=== PATIENT | female | born 1950 | race Caucasian/White ===

== ENCOUNTER 2023-09-05 10:22 | Day surgery (SDC) | payer MEDICARE, BC ==
[2023-09-04 12:31] LABS: ALBUMIN 3.5 G/DL (3.4-5.0); ANION GAP 8 (8-16); BASOPHILS # (AUTO) 0.1 X10'3 (0-0.2); BLOOD UREA NITROGEN 16 MG/DL (7-18); BUN/CREATININE RATIO 18.6 (10.0-20.0); CHLORIDE 106 MMOL/L (99-107); CREATININE 0.86 MG/DL (0.40-0.90); EOSINOPHILS # (AUTO) 0.2 X10'3 (0-0.9); EOSINOPHILS % (AUTO) 2.6 % (0-6); GLUCOSE 90 MG/DL (70-104); HEMOGLOBIN 13.9 g/dl (12.0-16.0); MEAN CORPUSCULAR HEMOGLOBIN 30.6 PG (27.0-31.0); MONOCYTES # (AUTO) 0.5 X10'3 (0-0.9); POTASSIUM 4.4 MMOL/L (3.5-5.1); RED BLOOD COUNT 4.54 X10'6 (4.20-5.60); SODIUM 142 MMOL/L (135-145); TOTAL CARBON DIOXIDE 28.4 MMOL/L (24-32); WHITE BLOOD COUNT 6.2 X10'3 (4.5-11.0); eGFR 65 ML/MIN
[2023-09-04 12:34] LABS: BASOPHILS % (AUTO) 0.9 % (0-1); LYMPHOCYTES % (AUTO) 15.8 % (21-51); MEAN CORPUSCULAR HGB CONC 32.3 g/dL (33.0-36.5); MEAN CORPUSCULAR VOLUME 94.7 FL (78-98); MONOCYTES % (AUTO) 8.8 % (2-12); NEUTROPHILS # (AUTO) 4.5 X10'3 (1.8-7.7); NEUTROPHILS % (AUTO) 71.9 % (42-75); PLATELET COUNT 76 X10'3 (140-440); RED CELL DISTRIBUTION WIDTH 15.3 % (11.5-14.5)
[2023-09-04 12:44] LABS: APTT 26 SECONDS (22-32); INR 1.1 INR; PROTHROMBIN TIME 11.7 SECONDS (9.0-12.0)
[~2023-09-05] VITALS: Ht 167.6 cm; Wt 93.3 kg
[2023-09-05] VITALS (10 sets, daily range): BP systolic 105–146; BP diastolic 56–86; PULSE 76–88; RESP 14–15; O2SAT 93–96
[2023-09-05] MEDS ORDERED: LORazepam 0.5 MG tablet PO PRN (10:40)
[2023-09-05] MEDS ORDERED: CHOL100046 PO (10:51)
[2023-09-05] MEDS ORDERED: ATOR10TA70 PO (10:51)
[2023-09-05] MEDS ORDERED: FERR-39 PO (10:51)
[2023-09-05] MEDS ORDERED: VITA-288 PO (10:51)
[2023-09-05] MEDS ORDERED: LOSA100T58 PO (10:51)
[2023-09-05] MEDS ORDERED: UMEC1DIS INH (10:51)
[2023-09-05] MEDS ORDERED: ASPI81TA52 PO (10:51)
[2023-09-05] MEDS ORDERED: ALBU6.7H14 INH (10:51)
[2023-09-05] MEDS ORDERED: verapamil 2.5 mg/ml inj IV ONE (11:35)
[2023-09-05] MEDS ORDERED: LIDOcaine 1% (10mg/ml) 2ml vial ONE (11:35)
[2023-09-05] MEDS ORDERED: heparin 1,000unit/ml 10ml vial 10 ML ONE (11:36)
[2023-09-05] MEDS ORDERED: midazolam 1 mg/ML 2ml injection ONE (11:36)
[2023-09-05] MEDS ORDERED: nitroGLYCERIN 500mcg/5mL D5W 5 ML IV ONE (11:36)
[2023-09-05] MEDS ORDERED: fentaNYL/PF 50MCG/1 ML 2ML syringe ONE (11:36)
[2023-09-05] MEDS ORDERED: iohexol 350 MG/ML 50ML vial IV ONE (11:36)
[2023-09-05] MEDS ORDERED: iohexol 350MG/ML 100ml bottle IV ONE (11:36)
[2023-09-05] MEDS: diphenhydrAMINE 25mg capsule PO PRN (11:45)
[2023-09-05] MEDS: normal saline 1,000 ML IV SCH (11:46)
[2023-09-05 12:40] LABS: ISTAT HGB ART 13.6 g/dl (12.0-16.0); ISTAT Hct ART 40 %PCV (35-45); ISTAT O2 SATURATION ARTERIAL 89 % (95-98); ISTAT SOURCE ART
[2023-09-05] MEDS ORDERED: normal saline 1000ml 1,000 ML IV SCH (13:40)
[2023-09-05] MEDS: furosemide 20 MG/2 ML vial IV ONE (15:30)
[2023-09-08 07:14] LABS: ISTAT HGB MIX 13.6 g/dl (12.0-16.0); ISTAT Hct MIX 40 %PCV (35-45); ISTAT O2 SATURATION MIX VENOUS 63 % (60-80); ISTAT SOURCE BLNK
== END 2023-09-05 17:00 | disposition home or self-care (01) ==
LOC: SSTAY O 10:22
PROVIDERS: ATTEND Internal Medicine Cardiovascular Disease
DX: I35.0 Nonrheumatic aortic (valve) stenosis (principal); I25.10 Atherosclerotic heart disease of native coronary artery without angina pectoris; Z79.01 Long term (current) use of anticoagulants; Z79.899 Other long term (current) drug therapy
CPT/HCPCS: 76937; 80048; 82803; 85014; 85025; 85610; 85730; 93005; 93460; 93567; 99152; 99153; J1644; J1940; J2250; J3010; J3490; J7030; Q0163; Q9967; A6258; A6402; A6449; C1725; C1751; C1894

== ENCOUNTER 2024-11-12 10:45 | Day surgery (SDC) | payer MEDICARE, BC ==
[2024-11-11 12:34] LABS: LYMPHOCYTES # (AUTO) 0.9 X10'3 (1.1-4.8); MONOCYTES # (AUTO) 0.5 X10'3 (0-0.9); NEUTROPHILS # (AUTO) 4.4 X10'3 (1.8-7.7)
[2024-11-11 12:36] LABS: BASOPHILS # (AUTO) 0.1 X10'3 (0-0.2); EOSINOPHILS # (AUTO) 0.1 X10'3 (0-0.9); EOSINOPHILS % (AUTO) 2.3 % (0-6); LYMPHOCYTES % (AUTO) 15.1 % (21-51); MEAN CORPUSCULAR HEMOGLOBIN 25.2 PG (27.0-31.0); MEAN CORPUSCULAR HGB CONC 31.1 g/dL (33.0-36.5); MEAN CORPUSCULAR VOLUME 80.9 FL (78-98); MEAN PLATELET VOLUME 10.2 FL (7.4-10.4); MONOCYTES % (AUTO) 8.4 % (2-12); NEUTROPHILS % (AUTO) 73.2 % (42-75); PLATELET COUNT 76 X10'3 (140-440); RED BLOOD COUNT 3.96 X10'6 (4.20-5.60); RED CELL DISTRIBUTION WIDTH 16.2 % (11.5-14.5)
[2024-11-11 12:45] LABS: ALBUMIN 3.6 G/DL (3.4-5.0); BLOOD UREA NITROGEN 15 MG/DL (7-18); BUN/CREATININE RATIO 13.6 (10.0-20.0); CALCIUM 8.8 MG/DL (8.5-10.1); GLUCOSE 85 MG/DL (70-104); TOTAL CARBON DIOXIDE 30.1 MMOL/L (24-32); eGFR 48 ML/MIN
[2024-11-11 12:48] LABS: APTT 21 SECONDS (22-32); INR 1.1 INR; PROTHROMBIN TIME 11.3 SECONDS (9.0-12.0)
[2024-11-11 13:06] LABS: ANION GAP 7 (8-16); CHLORIDE 103 MMOL/L (99-107); POTASSIUM 4.3 MMOL/L (3.5-5.1); SODIUM 140 MMOL/L (135-145)
[~2024-11-12] VITALS: Ht 167.6 cm; Wt 85.4 kg
[2024-11-12] VITALS (13 sets, daily range): BP systolic 107–135; BP diastolic 47–68; PULSE 70–88; RESP 12–18; TEMP 97.5; O2SAT 92–97
[~2024-11-12 10:45] MED LIST: ALBU6.7H14 INH; ASPI81TA52 PO; ATOR10TA70 PO; CHOL100046 PO; FERR-39 PO; LOSA100T58 PO; UMEC1DIS INH; VITA-288 PO
[2024-11-12] MEDS ORDERED: LIDOcaine 1% (10mg/ml) 2ml vial ONE (11:25)
[2024-11-12] MEDS ORDERED: iohexol 350 MG/ML 50ML vial IV ONE (11:26)
[2024-11-12] MEDS ORDERED: fentaNYL/PF 50MCG/1 ML 2ML syringe ONE (11:26)
[2024-11-12] MEDS ORDERED: iohexol 350MG/ML 100ml bottle IV ONE (11:26)
[2024-11-12] MEDS ORDERED: nitroGLYCERIN 500mcg/5mL D5W 5 ML IV ONE (11:26)
[2024-11-12] MEDS ORDERED: midazolam 1 mg/ML 2ml injection ONE (11:26)
[2024-11-12] MEDS ORDERED: verapamil 2.5 mg/ml inj IV ONE (11:26)
[2024-11-12] MEDS ORDERED: heparin 1,000unit/ml 10ml vial 10 ML ONE (11:26)
[2024-11-12] MEDS ORDERED: diphenhydrAMINE 25mg capsule PO PRN (11:45)
[2024-11-12] MEDS ORDERED: normal saline 1,000 ML IV SCH (11:45)
[2024-11-12] MEDS ORDERED: LORazepam 0.5 MG tablet PO PRN (11:45)
[2024-11-12] MEDS ORDERED: LIDOcaine 1% 30ml preserv. free vial ONE (12:30)
[2024-11-12] MEDS: morphine 2 MG/ML inj. syringe IV PRN (14:32)
[2024-11-12] MEDS: normal saline 1000ml 1,000 ML IV SCH (14:32)
[2024-11-12 14:52] LABS: ISTAT HGB MIX 9.9 g/dl (12.0-16.0); ISTAT Hct MIX 29 %PCV (35-45); ISTAT O2 SATURATION MIX VENOUS 59 % (60-80); ISTAT SOURCE BLNK
[2024-11-12 14:53] LABS: ISTAT HGB ART 9.5 g/dl (12.0-16.0); ISTAT Hct ART 28 %PCV (35-45); ISTAT O2 SATURATION ARTERIAL 94 % (95-98); ISTAT SOURCE BLNK
--- NOTE | 2024-11-15 04:55 | CARDIOLOGY REPORT ---
DATE OF SERVICE: 11/12/2024 DICTATING PHYSICIAN: ALLYN Cleveland MD CARDIAC CATHETERIZATION GENDER: Female. AGE: 74 years. HEIGHT: 168 cm. WEIGHT: 83.9 kg. BODY SURFACE AREA: 1.94 m2. PRIMARY PHYSICIAN: Verónica Ferrari MD OPERATIONS MGR: ALLYN Cleveland MD INDICATION: The patient is a 74-year-old postmenopausal female with a history of hypertension, hyperlipidemia, nonobstructive CAD, severe aortic stenosis, and COPD. The patient had an echocardiogram on 11/04/2024, which showed ejection fraction 50-65% with an aortic valve area of 0.8 cm2. Aortic velocity was 3.75 m/s with a peak/mean gradient of 32 mmHg. The patient has been having exertional fatigue and shortness of breath and she also has underlying COPD. She smoked until age 65. After discussing risks, benefits and alternative options, the patient prefers to proceed with evaluation of TAVR, evaluation of aortic valve stenosis severity assessment. Risks, benefits and alternative options were discussed. Informed consent obtained. PROCEDURES: * The patient had ultrasound-guided right femoral artery visualization and access. * Right heart catheterization. * Left heart catheterization. * LVG. * Coronary cineangiography. * Conscious sedation of 30 minutes and right femoral arteriogram. PROCEDURE TECHNIQUE: Right radial artery access was not successful and Hence it was switched to right femoral arterial access. The patient underwent a right antecubital approach, 6-Cook Islander sheath. Post-procedure access site hemostasis secured with manual compression. The patient underwent left heart, right femoral approach, 6-[place] Islander right femoral artery sheath. Post-procedure access site hemostasis secured with manual compression by FemoStop. The patient tolerated the procedure well. COMPLICATIONS: None. FINDINGS: HEMODYNAMICS: Aortic systolic 115 mmHg, diastolic 64 mmHg, mean 86 mmHg. LV systolic 158 mmHg, LVEDP of 25 mmHg. There was a mean gradient of 32 mmHg across the aortic valve with aortic valve area of 1.1 cm2. Right atrial mean 1 mmHg, RV 30/7 mmHg. Pulmonary capillary wedge pressure of 10 mmHg. PA pressure of 26/13 mmHg. Aortic oxygen saturation 94%. Pulmonary artery oxygen saturation 59%. Cardiac output with thermodilution was 7.3 L/min. Cardiac index 3.7 L/min/m2. LEFT VENTRICULOGRAM: Overall, left ventricular systolic function normal. LV ejection fraction of 70-75%. CORONARY CINEANGIOGRAPHY: Left main coronary artery is a large caliber vessel arising from the left aortic sinus engaged with a JL4 catheter, right femoral approach, has mild luminal irregularities. LAD is a medium caliber vessel arising at the bifurcation of the left main coronary artery tortuous, ends by wrapping around the apex. LAD has about 20% narrowing in the proximal and midsection. Diagonal 1 is 2.5 mm with mild luminal irregularities. Ramus is a 2.25 mm caliber with mild luminal irregularities. Circumflex artery is medium caliber vessel arising at the bifurcation of left main coronary artery and coursing through the left AV groove. Circumflex artery shows proximal 40% narrowing. OM1 is 2 mm caliber with mild luminal irregularities. OM2 is 2.75 mm caliber vessel with mild irregularities. The right coronary artery is a medium caliber dominant vessel arising at the right aortic sinus and coursing through the right AV groove and ends at the posterior crux by dividing into PDA and a posterolateral RCA and its branches have mild luminal irregularities. IMPRESSION: A 74-year-old female with LV ejection fraction 70-75%. LVEDP of 25 mmHg. There is a mean gradient of 32.4 mmHg across the aortic valve with aortic valve area of 1.14 cm2. Pulmonary capillary wedge pressure of 10 mmHg. PA pressure of 26/13 mmHg. Left main normal, proximal and mid LAD 20% narrowing. Proximal circumflex 30% narrowing. RCA with mild luminal irregularities. moderate aortic stenosis. Patient will have another echocardiogram in three months for re-evaluation. Risks benefits alternative options discussed in detail with the patient. ALLYN Cleveland MD TID: [id number] RECEIPT: [id number] JAYMIE/MELA/JOSE cc: Verónica Ferrari MD [facility]
== END 2024-11-12 19:50 | disposition home or self-care (01) ==
LOC: SSTAY O 10:45
PROVIDERS: ATTEND Internal Medicine Cardiovascular Disease
DX: I25.10 Atherosclerotic heart disease of native coronary artery without angina pectoris (principal); I35.0 Nonrheumatic aortic (valve) stenosis; I10 Essential (primary) hypertension; E78.5 Hyperlipidemia, unspecified; J44.9 Chronic obstructive pulmonary disease, unspecified; Z79.899 Other long term (current) drug therapy
CPT/HCPCS: 80048; 82803; 85014; 85025; 85610; 85730; 93460; 99152; 99153; A4615; A6258; A6402; C1725; C1751; C1894; J1644; J2003; J2250; J2270; J3010; J3490; J7030; Q9967; Z7610; 76937; A6449

== ENCOUNTER 2024-12-02 09:30 | Outpatient (CLI) | payer MEDICARE, BC ==
[~2024-12-02] VITALS: Ht 162.6 cm; Wt 85.9 kg
[~2024-12-02 09:30] MED LIST changes: -FERR-39 PO
[2024-12-02 10:05] LABS: BASOPHILS # (AUTO) 0.1 X10'3 (0-0.2); BASOPHILS % (AUTO) 1.3 % (0-1); EOSINOPHILS # (AUTO) 0.1 X10'3 (0-0.9); HEMOGLOBIN 9.2 g/dl (12.0-16.0); LYMPHOCYTES # (AUTO) 0.6 X10'3 (1.1-4.8); LYMPHOCYTES % (AUTO) 14.2 % (21-51); MEAN CORPUSCULAR HEMOGLOBIN 23.7 PG (27.0-31.0); MEAN CORPUSCULAR HGB CONC 30.5 g/dL (33.0-36.5); MEAN CORPUSCULAR VOLUME 77.8 FL (78-98); MEAN PLATELET VOLUME 10.5 FL (7.4-10.4); MONOCYTES # (AUTO) 0.5 X10'3 (0-0.9); MONOCYTES % (AUTO) 10.3 % (2-12); NEUTROPHILS # (AUTO) 3.2 X10'3 (1.8-7.7); NEUTROPHILS % (AUTO) 71.2 % (42-75); PLATELET COUNT 69 X10'3 (140-440); RED BLOOD COUNT 3.86 X10'6 (4.20-5.60); RED CELL DISTRIBUTION WIDTH 16.8 % (11.5-14.5); WHITE BLOOD COUNT 4.5 X10'3 (4.5-11.0)
[2024-12-02 10:15] LABS: APTT 23 SECONDS (22-32); INR 1.1 INR; PROTHROMBIN TIME 11.3 SECONDS (9.0-12.0)
[2024-12-02 10:30] LABS: ALANINE AMINOTRANSFERASE 74 U/L (12-78); ALBUMIN 3.4 G/DL (3.4-5.0); ALKALINE PHOSPHATASE 116 IU/L (46-116); ANION GAP 7 (8-16); ASPARTATE AMINO TRANSFERASE 79 U/L (10-37); BILIRUBIN,TOTAL 1.7 MG/DL (0.1-1.0); BLOOD UREA NITROGEN 13 MG/DL (7-18); CALCIUM 8.5 MG/DL (8.5-10.1); CHLORIDE 108 MMOL/L (99-107); CREATININE 0.93 MG/DL (0.40-0.90); GLUCOSE 91 MG/DL (70-104); POTASSIUM 4.3 MMOL/L (3.5-5.1); PRO BRAIN NATRIURETIC PEPTIDE 187 PG/ML (0-450); SODIUM 145 MMOL/L (135-145); TOTAL CARBON DIOXIDE 30.4 MMOL/L (24-32); TOTAL PROTEIN 6.7 G/DL (6.4-8.2); eGFR 59 ML/MIN
--- NOTE | 2024-12-02 10:33 | RADIOLOGY REPORT ---
EXAM: DI CHEST,TWO VIEWS CLINICAL HISTORY: Pain COMPARISON: None TECHNIQUE: Frontal and lateral view of the chest was obtained FINDINGS: Lines and Tubes: None Lungs: No focal consolidation. Pleura: No effusion. No pneumothorax. Cardiomediastinal contours: Unremarkable. Atherosclerotic vascular calcifications of the thoracic ao rta are noted. Bones: No acute osseous abnormality. IMPRESSION: No acute cardiopulmonary disease.
--- NOTE | 2024-12-02 12:44 | VASCULAR REPORT ---
Indication: Preoperative Technique: Real-time ultrasound images of the neck vessels with coy-scale, color and wave Doppler we re obtained. Comparison: None Findings: Balm-uo-dgkqdrif bilateral atherosclerotic plaque. The following peak systolic velocities were recorded in cm/sec: Right internal carotid: 97 Right common carotid: 61 Right external carotid: 91 Right internal/common carotid ratio: 1.6 Left internal carotid: 135 Left common carotid: 78 Left external carotid: 67 Left internal/common carotid ratio: 1.7 Right vertebral artery: Patent with normal antegrade direction of flow. Left vertebral artery: Patent with normal antegrade direction of flow. Impression: 1. Approximately 50-69% stenosis of the left internal carotid artery by velocity criteria. Recommend CT angiogram neck to further evaluate.
[2024-12-02 13:24] LABS: ABG BASE EXCESS -2.2 mmol/L (-2.0-3.0); ABG HCO3 21.1 mmol/L (21.0-28.0); ABG OXYGEN SATURATION 94.3 % (94.0-98.0); ABG PH (T) 7.451 (7.350-7.450); ABG PO2 (T) 70.3 mmHg (83.0-108.0); ALLEN'S TEST POSITIVE; FCOHb 0.5 % (0.5-1.5); FHHb 5.7 % (0.0-5.0); FMetHb 0.3 % (0.0-1.5); FO2Hb 93.5 % (94.0-98.0); MODE ROOM AIR; TOTAL HEMOGLOBIN 9.9 G/dl (12.0-16.0)
[2024-12-02 13:50] VITALS: PULSE 85; RESP 16; O2SAT 85
[2024-12-02] MEDS: albuterol 2.5 MG/3 ML nebule NEB ONE (14:00)
[2024-12-02 14:03] VITALS: PULSE 81; RESP 16
[2024-12-02 14:42] VITALS: BP 129/52; PULSE 90; RESP 18; TEMP 96.6; O2SAT 96
--- NOTE | 2024-12-02 23:22 | CONSULTATION ---
DATE OF CONSULTATION: 12/02/2024 DICTATING PHYSICIAN: Laurent Goldberg M.D. CARDIOVASCULAR CONSULTATION REFERRING PHYSICIAN: ALLYN Clevealnd MD Dear Dr. Cleveland, I had the pleasure of seeing the patient here accompanied by her for evaluation of severe symptomatic aortic valve stenosis. As you recall, a very pleasant 74-year-old patient with hypertension, hyperlipidemia, nonobstructive coronary disease, COPD and severe . 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 She has progressive fatigue and shortness of breath and was sent to determine her candidacy for transfemoral TAVR. PAST MEDICAL HISTORY: * Severe symptomatic aortic valve stenosis. * Hypertension. * Hyperlipidemia. * Nonobstructive CAD. * COPD. * Nonalcohol-based cirrhosis with chronic thrombocytopenia. PAST SURGICAL HISTORY: She has had a tubal ligation in 1977 and bilateral cataracts in 2018. MEDICATIONS: Losartan 100 mg a day, atorvastatin 10 mg a day, iron 325 mg a day. She takes an Ellipta inhaler once a day, albuterol inhaler as needed. FAMILY HISTORY: Noncontributory given her age. SOCIAL HISTORY: She is . Lives with her who is here today. She is retired. No alcohol or drug use. She quit smoking about 8 years ago, but started when she was 14. REVIEW OF SYSTEMS: She has progressive fatigue, shortness of breath, and dyspnea on exertion. PHYSICAL EXAMINATION: VITAL SIGNS: She is 64 inches tall, 86 kg. Heart rate 90, blood pressure 129/52, satting 96% on room air. GENERAL: She is well-appearing, in no apparent distress. HEENT: Exam is unremarkable. NECK: She has readily audible carotid bruits on both sides, which could be related to her aortic stenosis murmur radiating. LUNGS: Clear. There was no wheezing or rhonchi noted. ABDOMEN: Benign. EXTREMITIES: Without edema. HEART: Has a 3/6 late peaking systolic ejection murmur with a soft S2. LABORATORY TESTS AND EVALUATION: * CT scan shows that she is a candidate for a 26 mm Ferrera valve through a transfemoral approach. We have to be cautious about the height and size of the STJ when deploying the valve. * Carotid duplex suggests 50-69% stenosis in the left internal carotid artery. Follow up with angiogram might be necessary. * Chest x-ray with no acute cardiopulmonary disease. * Labs: She has a hemoglobin of 9.2, platelet count 69,000. Creatinine 0.93. Bilirubin 1.7, albumin 3.4. INR 1.1. * Echocardiogram shows preserved LV systolic function. She has a mean gradient across her valve with 32 mmHg and a valve area of 0.8 cm2, peak velocity of 3.8 m/sec. * Angiographic imaging of her coronary anatomy on 11/12/2024 shows the patient to have a mean gradient of 32 across the valve. LVEDP elevated at 25, valve area around 1 to 1.1. Normal right heart pressures. Good cardiac output. Nonobstructive CAD. * EKG shows her to be in sinus with a narrow QRS. ASSESSMENT AND PLAN: A 74-year-old woman with a chronic smoking history, chronic thrombocytopenia from underlying nonalcoholic liver cirrhosis, with severe symptomatic aortic valve stenosis, who is a candidate for a transfemoral TAVR. We have the following plan for her: * She will be brought in for a transfemoral TAVR, Ferrera 26 valve. * We need to watch out for bleeding given her chronic thrombocytopenia and underlying liver disease. We may cross her for a unit of platelets at the time of her procedure just to be ready. * Nonobstructive coronary artery disease, on medical therapy. * Moderate carotid disease, which may require future imaging. Dr. Cleveland, thank you for allowing us the opportunity to see the patient. We will get her in shortly for her TAVR. If we can be of any further assistance with this or any patient in the future, please do not hesitate to call. Laurent Goldberg M.D. TID: [id number] RECEIPT: [id number] ALEX/MELA
--- NOTE | 2024-12-03 17:15 | RADIOLOGY REPORT ---
Procedure: CT CTA TAVR Reason for study/Clinical History: Chest pain, evaluate for dissection. Comparison Study: None Exam Date: 12/02/2024 11:00 AM TECHNIQUE: Multiplanar reformatted images were generated from volumetric data acquired on a multidetector CT [facility]. Cardiac gating was utilized. Arterial phase images were obtained through the chest, abdomen and pelvis following intravenous administration of contrast material. 100 mL visipaque [address] dose reduction techniques were utilized. 3-D reconstructions were performed on an independent work station. Radiation Dose Information: CT Dose: CTDI volume is 65 mGy. Dose-length product is 2384 mGy*cm FINDINGS: Vascular: Aortic measurements: Aortic annulus: 27.8 x 0.3 0.8 mm Sinus of valsalva: right cusp 34.7 mm, left cusp 33 mm, non-coronary cusp 33.4 mm Right coronary distance: 19.8 Left coronary distance: 15.2 ST junction 22.7 mm Ascending aorta 36.6 mm Aortic arch 29 mm Descending aorta 25 mm Aortic hiatus 29 mm Upper abdominal aorta 21 mm Minimal abdominal aorta 13.8 mm Right common iliac 5.97 mm, tortuosity index 1.16 Left common iliac 5.26 mm, tortuosity index 1.11 There is normal caliber of aorta. No aortic dissection. Ectasia of the infrarenal abdominal aorta. Ao rtic arch anatomy is conventional. There is conventional coronary artery anatomy. Diffuse calcified atherosclerotic plaque. No central pulmonary embolism. There is normal dimension of the main pulmonary artery. Heart is normal. There are no intracardiac filling defects. No pericardial effusion. Mediastinum: There is no significant intrathoracic or axillary lymphadenopathy by CT size criteria. Lungs: Atelectasis and scarring in the lung bases. Pleura: No effusion or pneumothorax. Chest wall: No acute abnormality. Abdomen and Pelvis: Liver: Normal in appearance. Gallbladder: Cholelithiasis Spleen: Splenomegaly. Pancreas: Normal in appearance. Adrenals: Normal in appearance. Kidneys: Normal in appearance. Bowel: Sigmoid diverticulosis. No evidence of obstruction. Peritoneum: Small amount of free fluid in the pelvis. Lymph nodes: Shotty retroperitoneal lymphadenopathy. Pelvic structures: No pelvic mass. Bones: Normal in appearance. IMPRESSION: 1. TAVR planning with vascular measurements as described above. Ectasia of the infrarenal abdominal a nisha without aneurysmal dilation. 2. Cholelithiasis. Splenomegaly. Sigmoid diverticulosis. Small amount of free fluid in the pelvis. Sh otty retroperitoneal lymphadenopathy. HS:Y
--- NOTE | 2024-12-06 13:28 | PROCEDURE NOTE - Respiratory ---
Procedure Note-Respiratory Providers to Copies To 1: NITESH OLIVIA MD Procedure Name: This is a complete pulmonary function study dated December 02, 2024. Hemoglobin measurement was done as part of the study. There was also a room air blood gas obtained from this patient on the same date. Spirometry measurements: Both the forced vital capacity and the FEV1 are substantially reduced. The FEV1 ratio is also reduced. All of the measured flow rates show pronounced reduction. After inhaled bronchodilator was administered, there is not much change in the flow volume curve. Lung volume measurements: There is mild elevation in the total lung capacity. The functional residual capacity and the residual volume measurements are also enlarged. This indicates hyperinflation with air trapping within the lungs. Lung diffusion measurement: The DLCO is clearly reduced at 68% predicted value. It is noted that the patient shows anemia with hemoglobin measuring at 9.9 grams/deciliter. Airway resistance measurement: The airway resistance is clearly elevated. Overall conclusion: This study shows severe abnormality. There is evidence of severe obstructive ventilatory defect. This is consistent with the patient's diagnosis of COPD. Lung volume measurements show evidence for hyperinflation with gas trapping within the lungs. These findings together with the reduced DLCO suggests the presence of emphysema. The patient's anemia may explain part of the DLCO reduction. Continued use of bronchodilator therapy is recommended for this patient. We have no previous studies for comparison. A blood gas was drawn from this patient while the patient was breathing room air. The blood pH is borderline alkalotic. The pCO2 is slightly reduced. This represents a mild respiratory alkalosis. There is reduction in the room air PO2 at 70 mmHg. ALICE YAON MD Dec 06, 2024 13:28
== END 2024-12-02 23:59 | disposition home or self-care (01) ==
LOC: RAD 09:30
PROVIDERS: ATTEND Internal Medicine Cardiovascular Disease
DX: I65.22 Occlusion and stenosis of left carotid artery (principal); I35.0 Nonrheumatic aortic (valve) stenosis; R06.02 Shortness of breath; I77.811 Abdominal aortic ectasia; K80.20 Calculus of gallbladder without cholecystitis without obstruction; K57.30 Diverticulosis of large intestine without perforation or abscess without bleeding; R16.1 Splenomegaly, not elsewhere classified
CPT/HCPCS: 36415; 36600; 71046; 71275; 74174; 75572; 80053; 82803; 83880; 85018; 85025; 85610; 85730; 93880; 94060; 94727; 94729; 94760

== ENCOUNTER 2025-01-06 06:08 | Inpatient (IN) | payer MEDICARE, BC ==
--- NOTE | 2024-12-31 10:33 | ELECTROCARDIOGRAPH REPORT ---
[facility] Test Date: 2024-12-31 Test Time: 10:28:07 Pat Name: URVASHI MORALES Department: PRE/OP CARDIOLOGY Room: Gender: F Hotshot Superintendent: GONSALO : 1950 Requested By: NITESH OLIVIA Order Number: [id number] Reading MD: Dr. ALLYN Cleveland Measurements Intervals [place] Rate: 81 P: 70 [place]: 170 QRS: 62 QRSD: 92 T: 67 QT: 403 QTc: 468 Interpretive Statements Sinus rhythm Electronically Signed On 01-01-2025 12:34:[address] ALLYN Cleveland Please click the below link to view image of tracing.
[2024-12-31 10:34] LABS: MEAN PLATELET VOLUME 10.9 FL (7.4-10.4); PRE OP WHITE BLOOD COUNT 5.0 10'3 (4.8-10.8)
[2024-12-31 10:40] LABS: PRE OP INR 1.1 INR; PRE OP PARTIAL THROMB. TIME 23.0 SECONDS (22-32); PRE OP PROTIME 11.0 SECONDS (9.0-12.0)
[2024-12-31 10:41] LABS: CREATININE 1.10 MG/DL (0.40-0.90); PRE OP ALT 40 U/L (30-65); PRE OP ANION GAP 7 (8-16); PRE OP AST 33 U/L (10-37); PRE OP BILIRUB, TOTAL 1.8 MG/DL (0.0-1.0); PRE OP GLUCOSE 93 MG/DL (70-104); PRE OP POTASSIUM 4.1 MMOL/L (3.4-5.1); PRE OP SODIUM 138 MMOL/L (135-145); TOTAL CARBON DIOXIDE 28.1 MMOL/L (24-32); eGFR 48 ML/MIN
[2024-12-31 11:08] LABS: PRE OP HEMATOCRIT 25.9 % (35.0-45.0); RED CELL DISTRIBUTION WIDTH 17.1 % (11.5-14.5)
[2024-12-31 11:10] LABS: PRE OP HEMOGLOBIN 8.4 g/dL (12.0-16.0); PRE OP PLATELET COUNT 73 X10'3 (140-440)
[2024-12-31 11:27] LABS: LEUKOCYTE ESTERASE ,URINE MODERATE (Neg); NITRITES, URINE NEGATIVE (Neg); OCCULT BLOOD,URINE SMALL (Neg)
[2024-12-31 11:32] LABS: UA COLLECTION TYPE NON-SPECIFIED
[2024-12-31 11:33] LABS: SQUAMOUS EPITHELIAL CELL,UR MODERATE /LPF (FEW)
[2024-12-31 11:35] LABS: YEAST FEW /HPF (NEGATIVE)
[2024-12-31 11:43] LABS: PLATELET ESTIMATE DECREASED
[2024-12-31 11:44] LABS: ELLIPTOCYTES FEW
--- NOTE | 2024-12-31 12:06 | RADIOLOGY REPORT ---
EXAM: DI CHEST,TWO VIEWS CLINICAL HISTORY: pain COMPARISON: DI CHEST,TWO VIEWS on DOS: 12/02/24 TECHNIQUE: Frontal and lateral view of the chest was obtained FINDINGS: Lines and Tubes: None Lungs: No focal consolidation. Pleura: No effusion. No pneumothorax. Cardiomediastinal contours: Unremarkable. Atherosclerotic vascular calcifications of the thoracic ao rta are noted. Bones: No acute osseous abnormality. IMPRESSION: No acute cardiopulmonary disease.
[~2025-01-06] VITALS: Ht 167.6 cm; Wt 83.6 kg
[2025-01-06] VITALS (29 sets, daily range): BP systolic 98–137; BP diastolic 45–65; PULSE 77–107; RESP 9–21; TEMP 97.1–97.8; O2SAT 93–100
[2025-01-06] MEDS: nitroPRUSSIDE (NIPRIDE) (200MCG/ML) 100ML Drip IV SCH (05:30)
[2025-01-06] MEDS: ceFAZolin 2gm/dext,iso 50mL 50 ML IV ONE (05:30)
[2025-01-06] MEDS: phenylephrine inj 50 MG in normal saline 250ml IV solN IV SCH (05:30)
[~2025-01-06 06:08] MED LIST changes: -CHOL100046 PO; +PANT40TA54 PO; -VITA-288 PO; +ondansetron/PF 4mg/2ml inj IV PRN
[2025-01-06] MEDS ORDERED: protamine sulfate 10mg/ml inj. ONE (06:29)
[2025-01-06] MEDS ORDERED: hydrALAZINE 20mg/ml inj. IV PRN ×2 (07:15→10:10)
[2025-01-06] MEDS: ringers solution, lacted 1,000 ML IV SCH ×2 (07:15→07:28)
[2025-01-06] MEDS ORDERED: morphine 4 MG/ML inj SYRINge IV PRN (07:15)
[2025-01-06] MEDS ORDERED: ondansetron/PF 4mg/2ml inj IV PRN (07:15)
[2025-01-06] MEDS ORDERED: labetalol 20mg/4ml (5mg/ml) syringe IV PRN ×2 (07:15→10:10)
[2025-01-06] MEDS: VANCOMYCIN/H2O 1.5g/300mL PB 300 ML IV ONE (07:28)
[2025-01-06] MEDS ORDERED: heparin 1,000 UNITS/NS 500ml 1,500 ML ONE (08:31)
[2025-01-06] MEDS ORDERED: LIDOcaine 1% 30ml preserv. free vial ONE (08:31)
[2025-01-06] MEDS ORDERED: morphine 10mg/ml inj. ONE (09:02)
[2025-01-06] MEDS ORDERED: desflurane 240ml liquid inh. IH ONE (09:08)
[2025-01-06] MEDS ORDERED: heparin 1,000unit/ml 10ml vial 10 ML ONE (09:15)
[2025-01-06] MEDS ORDERED: propofol inj 20 ML IV ONE (09:15)
[2025-01-06] MEDS ORDERED: potassium Cl 20 mEq SR tablet PO PRN (10:10)
[2025-01-06] MEDS ORDERED: pantoprazole 40mg Tablet.DR PO PRN (10:10)
[2025-01-06] MEDS: normal saline 1000ml 1,000 ML IV SCH (10:10)
[2025-01-06] MEDS ORDERED: magnesium sulf-water 2g/50mL 50 ML IV PRN (10:10)
[2025-01-06] MEDS ORDERED: potassium Cl 40MEQ/270ML bag 250 ML IV PRN (10:10)
[2025-01-06] MEDS ORDERED: ALPRAZolam 0.25mg tablet PO PRN (10:10)
[2025-01-06] MEDS ORDERED: potassium Cl 40MEQ/1/2NS 520ml 520 ML IV PRN (10:10)
[2025-01-06] MEDS ORDERED: potassium Cl 20mEq/100mL bag 100 ML IV PRN (10:10)
[2025-01-06] MEDS ORDERED: potassium CL 10mEq/100ml bag 100 ML IV PRN (10:10)
[2025-01-06] MEDS ORDERED: docusate sod 100mg capsule PO PRN (10:10)
[2025-01-06] MEDS ORDERED: magnesium sulf-water 4G/100mL 100 ML IV PRN (10:10)
--- NOTE | 2025-01-06 10:14 | OPERATIVE REPORT ---
Operative Report Providers to CC CC: RACHEL PEDRAZA MD ~ Date of Procedure: Jan 06, 2025 Pre-Operative Diagnosis: Severe Aortic Stenosis Post-Operative Diagnosis SAME as PRE-Op Procedure Performed 1. Ultrasound-guided access, bilateral femoral vessels. 2. Bilateral femoral angiography. 3. Ascending aortography. 4. Temporary transvenous pacer to the RV apex. 5. Balloon Aortic Valvuloplasty with a 23mm balloon 6. Placement of a 23+2 mm Ferrera S3 Resilia valve. Surgeon: Dru Sepulveda MD Senior Radiation Therapist MD Dr. Raul Wong MD Anesthesiologist: Ye Milton Findings: Severe Aortic Stenosis Complications None Prosthetics\Implants used: Ferrera 23+2mm S3 Resilia Estimated Blood Loss: Minimal Specimen Removed: None Description of Procedure: The patient was brought to the medical lab assistant in a fasting state. They underwent MAC anesthesia. Ultrasound was used to guide access to the bilateral femoral vessels, 7-Namibian sheath, left femoral artery, 6-Namibian sheath, right femoral artery and left femoral vein. Bilateral femoral angiograms were obtained. Heparin was given to maintain an ACT over 250 seconds. Two yang-cross Perclose devices were placed on the right. We upsized to an 8- [place]ian sheath. Two pigtail catheters placed in the ascending aorta. Ascending aortography done to determine the angle of deployment. Temporary transvenous pacer to the RV apex and confirmed capture. We upsized an 8-Namibian sheath to a 14-Namibian Ferrera eSheath on the right. We crossed the aortic valve using a straight stiff exchange length Terumo wire supported by a 6-Namibian AL1 catheter. LV AO pressures were recorded. A [employer] extra support wire was placed in the left ventricle. Next, a 23mm balloon was brought into position and under rapid ventricular pacing, it was inflated. After full inflation, Aortic root angiography was performed confirming seal at the annular level. Subsequently, A 23(+2) mm Ferrera S3 Resilia valve was brought to position and under rapid right ventricular pacing was deployed. Post-procedure, there was no AI and no residual . Guidewires and balloons were removed at this time. The temporary pacer was removed. The 14-Namibian Ferrera eSheath was removed and the Perclose devices tied with adequate hemostasis. The arterial sheath on the left was removed and a single Perclose tied. The venous sheath on the left was removed and a single Angioseal used for hemostasis. Protamine was given to reverse the effects of heparin. The patient was stable post-procedure. Good pulses in the legs and no evidence of bleeding, transferred to the PACU in stable condition. HEMODYNAMICS: Pre: LV: 159/17 mmHg LVEDP: 33mmHg Ao: 124/56, MAP 85mmHg Post: LV: 136/19 mmHg LVEDP: 34 mmHg Ao: 129/53, MAP 84mmHg RESULTS: 1. Successful balloon aortic valvuloplasty with a 23 mm balloon. 2. Successful placement of a 23(+2) mm Ferrera S3 Resilia valve, right tra nsfemoral approach, two perclose devices. ASA 81mg QD. 23+2 used given heavily calcified STJ measuring [id number]. 3. Hypertension: Resume if blood pressure remains stable 4. Acute on chronic diastolic heart failure, LVEDP 33mmHg 5. Cirrhosis: Known anemia, thrombocytopenia Patient will be watched in the recovery area until stable, then transferred to telemetry at that time. DRU SEPULVEDA MD Jan 06, 2025 10:14
--- NOTE | 2025-01-06 10:24 | ELECTROCARDIOGRAPH REPORT ---
[facility] Test Date: 2025-01-06 Test Time: 10:22:45 Pat Name: URVASHI MORALES Department: [facility] IN Patient ID: [facility]-[id number] Room: [place] [address] Gender: F Support Architect: : 1950 Requested By: DRU MAE Order Number: [id number] Reading MD: Dr. ALLYN Cleveland Measurements Intervals [place] Rate: 91 P: 71 [place]: 208 QRS: 0 QRSD: 94 T: 88 QT: 397 QTc: 489 Interpretive Statements Sinus rhythm Borderline prolonged AK interval Anterior infarct, old Electronically Signed On 01-07-2025 17:31:[address] ALLYN Cleveland Please click the below link to view image of tracing.
[2025-01-06] MEDS: ondansetron/PF 4mg/2ml inj IV PRN (14:12)
[2025-01-06] MEDS: ceFAZolin 1GM/D5W- ADD-VANTAGE 50 ML IV SCH (14:56)
[2025-01-06] MEDS: HYDROcodone/acetaminophen 5mg/325mg tablet PO PRN (14:57)
[2025-01-06] MEDS: sod chloride 0.9% 10ml flush syringe IV SCH (15:58)
--- NOTE | 2025-01-06 16:53 | CARDIOLOGY REPORT ---
APPROVED REPORT EXAM: Focused, limited intraprocedural transthoracic 2D, spectral and color flow Doppler echocardiogr am during TAVR deployment. Patient Location: [facility] Blood Pressure: 105/67 mmHg Heart Rate: 78 bpm Rhythm: SINUS Indications SEVERE AORTIC STENOSIS 23 MM Ferrera Vivienne 3 Ultra RESILIA Bioprosthetic TAVR 23 MM CHAPARRO BAV balloon. HYPERTENSION COPD CORONARY DISEASE Site[employer] Developer:Gilda Cleveland MD / Interventionalist: Michael Sepulveda MD and Ann Marie Goldberg MD. / Surgeon: Teodoro Russell MD. / Device rep: Sarahi Vuong ELS Previous echo: 11/04/24 ad bvc erf: 60-65%; SCOTT 0.8; PKV: 3.75; GRAD: 56/32; LVOT 2.0; Sj; mMS; mMR; trTR; trPI LEFT VENTRICLE Normal LV size and function. Mild concentric hypertrophy. Dagger shaped Doppler without resting gradi ent. Patient unable to perform maneuvers due to anesthesia. LVEF is 60-65%. Post deployment LVEF appe ars to be 70-75%. RIGHT VENTRICLE RV is normal size and function. RVSP is estimated at 66 mmHg. ATRIA Left atrium appears at least moderately dilated. AORTIC VALVE Trileaflet AV appears heavily calcified with significant stenosis demonstrated by reduced excursion a nd increased transvalvular and ascending aorta turbulance. No insufficiency. SCOTT is measured at 0.8 c msq. Peak / mean gradients of 68 / 41 mmHG. Peak velocity is measured at 4.10 m/sec. PRE DILATATION: 23 mm CHAPARRO BAV balloon. POST DEPLOYMENT (LOOP:47): 23 mm Ferrera Vivienne 3 Ultra Resilia bioprosthetic TAVR appears well seated with normal function. No paravalvular leak detected. SCOTT is measured at 2.3 cmsq. Peak / mean gradients of 29 / 12 mmHG. Peak velocity is measured at 2.60 m/sec. Increased velo cities due to hyperdynamic LV function post-deployment. MITRAL VALVE Moderate MV annular calcification without stenosis. Mild, audible regurgitation with a BP of 131 / 74 . TRICUSPID VALVE TV appears structurally normal with trace regurgitation. PULMONIC VALVE Normal PV without stenosis, physiologic insufficiency. GREAT VESSELS Aortic root is normal in size. Ascending aorta is normal in size. PERICARDIUM Normal pericardium. No effusion.
[2025-01-06] MEDS: vancomycin/NS 1 GM ADD-VANTAGE 250 ML IV SCH (20:08)
[2025-01-07] VITALS (10 sets, daily range): BP systolic 100–108; BP diastolic 46–54; PULSE 70–122; RESP 14–17; TEMP 97.1–97.9; O2SAT 84–96
[2025-01-07 06:13] LABS: MEAN PLATELET VOLUME 12.1 FL (7.4-10.4); RED CELL DISTRIBUTION WIDTH 17.8 % (11.5-14.5)
[2025-01-07 06:29] LABS: CREATININE 0.99 MG/DL (0.40-0.90); PRO BRAIN NATRIURETIC PEPTIDE 906 PG/ML (0-450); TOTAL CARBON DIOXIDE 28.4 MMOL/L (24-32); eCRCL 46 ML/MIN; eGFR 55 ML/MIN
[2025-01-07 07:04] LABS: PLATELET ESTIMATE DECREASED
[2025-01-07 07:05] LABS: ELLIPTOCYTES FEW; GIANT PLATELET FEW
[2025-01-07] MEDS ORDERED: non-formulary drug (Umeclidinium Brm/Vilanterol Tr (Anoro Ellipta 62.5-25 Mcg INH) 1 PUFFS INH SCH (08:00)
[2025-01-07] MEDS ORDERED: aspirin 81mg, enteric-coated 1 TAB TABLET.DR PO SCH (08:00)
--- NOTE | 2025-01-07 08:17 | RADIOLOGY REPORT ---
CHEST RADIOGRAPH Indication: s/p TAVR Technique: Single frontal view of the chest was obtained Comparison: None FINDINGS: Lines and Tubes: None Lungs: No focal consolidation. Pleura: No effusion. No pneumothorax. Cardiomediastinal contours: Cardiomegaly. Post TAVR. Bones: No acute osseous abnormality. IMPRESSION: 1. Cardiomegaly. Status post TAVR. No focal airspace disease.
--- NOTE | 2025-01-07 08:43 | ELECTROCARDIOGRAPH REPORT ---
[facility] Test Date: 2025-01-07 Test Time: 08:41:43 Pat Name: URVASHI MORALES Department: [facility] Room: [place] [id number] Gender: F Operations Trainer: RACHELLE : 1950 Requested By: DRU MAE Order Number: [id number] Reading MD: Dr. ALLYN Cleveland Measurements Intervals [place] Rate: 91 P: 70 [place]: 185 QRS: 42 QRSD: 99 T: 79 QT: 384 QTc: 473 Interpretive Statements Sinus rhythm Electronically Signed On 01-07-2025 17:32:[address] ALLYN Cleveland Please click the below link to view image of tracing.
[2025-01-07] MEDS: pantoprazole 40mg Tablet.DR PO SCH (09:29)
[2025-01-07 13:20] LABS: MEAN PLATELET VOLUME 11.5 FL (7.4-10.4); RED CELL DISTRIBUTION WIDTH 17.5 % (11.5-14.5)
[2025-01-07] MEDS ORDERED: ipratropium/albuterol 3ml nebule NEB PRN (15:00)
[2025-01-07] MEDS: albuterol 2.5 MG/3 ML nebule NEB PRN (15:14)
--- NOTE | 2025-01-07 15:37 | DISCHARGE SUMMARY ---
Discharge Summary Providers to CC ~ Discharge Summary Admission Diagnosis: Severe Aortic Stenosis Admission Diagnosis Comment: Aortic stenosis status post TAVR Hypertension Acute on chronic diastolic heart failure with LVEDP 33 mm of mercury Cirrhosis with known anemia/thrombocytopenia. Status post 1 unit packed red blood cells. Hospital Course DATE OF ADMISSION: 01/06/25 DATE OF DISCHARGE: 01/07/25 Discharge Diagnosis\Comment: Severe aortic stenosis status post TAVR Hypertension Acute on chronic diastolic heart failure Cirrhosis Anemia Operations\Procedures: 1. Ultrasound-guided access, bilateral femoral vessels. 2. Bilateral femoral angiography. 3. Ascending aortography. 4. Temporary transvenous pacer to the RV apex. 5. Balloon Aortic Valvuloplasty with a 23mm balloon 6. Placement of a 23+2 mm Ferrera S3 Resilia valve. Consultants: No consultations Complications: No complications Condition on DC: Stable Continued Medications: Albuterol Sulfate (Proventil Hfa) 90 Mcg Hfa.aer.ad 2 PUFFS INH Q6H PRN for SOB or wheezing Aspirin (Aspirin EC) 81 Mg Tablet.dr 1 TAB PO QAM for 30 Days, #30 TAB Atorvastatin Calcium (Atorvastatin Calcium) 10 Mg Tablet 1 TAB PO HS Losartan Potassium (Losartan Potassium) 100 Mg Tablet 1 TAB PO DAILY Pantoprazole Sodium (Pantoprazole Sodium) 40 Mg Tablet.dr 1 TAB PO DAILY for indigestion Umeclidinium Brm/Vilanterol Tr (Anoro Ellipta 62.5-25 Mcg INH) 62.5 Mcg-25 Mcg/Actuation Disk.w.dev 1 PUFFS INH DAILY Discharge Summary: This is a 74-year-old female with past medical history is significant for hype rtension, hyperlipidemia, nonalcoholic cirrhosis, nonobstructive coronary artery disease, COPD, severe aortic stenosis. Presented for planned TAVR procedure. Underwent placement of a 23+ 2 mm Ferrera S3 resilient valve via the right transfemoral approach. She tolerated the procedure well. Remained hemodynamically stable postoperatively. Preop hemoglobin 8.4 and hematocrit 25.9. This morning hemoglobin 6.4 and hematocrit 21.6. She was given 1 unit packed red blood cells. She has been up and ambulatory. Has some lightheadedness and shortness for breath. She is wheezy on exam. Initially on oxygen at 2 L nasal cannula when I walked into the room. This was removed. She was 80-90% on room air. Was given albuterol treatment. Oxygen saturation remained stable at about 90%. Postoperative testing was reviewed by Dr. Padmini Sepulveda and Dr. Laurent Goldberg. She was cleared for discharge home. Physical exam: General: Awake, alert, oriented. No apparent distress Neck: Supple. Normal range of motion. No JVD Respiratory: Lungs are clear to auscultation bilaterally. No respiratory distress. Chest: Normal shape and size. No accessory muscle use. Cardiovascular: Regular rate and rhythm. S1-S2. No murmur, gallop, rub. Gastrointestinal: Abdomen is soft. Nontender to palpation. Bowel sounds present. Extremities: No lower extremity edema, cyanosis or clubbing. Femoral cath sites with dressing clean dry and intact. No ecchymosis or swelling. No hematoma. Dorsalis pedis pulses are palpable. Neurologic: Alert and oriented x4. Nonfocal Psychiatric: Normal mood and affect. Skin: Normal color. Warm and dry. Plan: Patient is being discharged home in stable condition. She will follow up as scheduled. Activity restrictions reviewed. Reviewed with Dr. Leena Sepulveda. In agreement with discharge home. The *Problems/Diagnosis: (1) Aortic stenosis (2) Hypertension (3) Acute on chronic diastolic heart failure (4) Cirrhosis (5) Anemia Total Time Spent on D/C: > 30 Minutes Counseling Services Smoking & Tobacco Cessation: N/A Supervising MD Co-signing Provider: YASHIRA Alba NP Jan 07, 2025 15:37
--- NOTE | 2025-01-07 17:46 | CARDIOLOGY REPORT ---
APPROVED REPORT EXAM: Limited 2D, Doppler, and color-flow Echocardiogram. Patient Location: [facility] Blood Pressure: 102/51 mmHg Heart Rate: 93 bpm Indications ONE DAY FOLLOW UP 23 mm Ferrera Vivienne 3 Ultra RESILIA Bioprosthetic TAVR LIST OF FIRST JOB IDEAS: Gilda Cleveland MD Previous ECHO: 01/06/25, [facility], EF: 70-75; SCOTT: 2.3; GRAD: 29 / 12; PKV: 2.60; mod LAE; mMR 2D Dimensions IVSd 0.9 (0.7-1.1cm) LVDd 4.4 cm PWd 1.0 (0.7-1.1cm) IVSs 1.3 (0.8-1.2cm) LVDs 2.7 (2.5-4.0cm) PWs 1.3 (0.8-1.2cm) LVOT Diameter 2.30 (1.8-2.4cm) LVEF(%) 68.3 (>50%) IVC 16.29 mmFS (%) 37.9 % SV 58.8 ml CO 5.4 L/min M-Mode Dimensions Left Atrium(MM) 3.02 (2.5-4.0cm) Aortic Root 2.38 (2.2-3.7cm) Aortic Valve AoV Peak Brock. 250.0 cm/s AoV VTI 44.1 cm AO Peak GR. 25.0 mmHg AO Mean GR. 13 mmHg LVOT VTI 24.83 cm LVOT Peak Brock. 116.7 cm/s SCOTT(VTI)/BSA 2.34 cm2/m2 SCOTT (VTI) 2.34 cm2 Tricuspid Valve TR P. Velocity 255 cm/s RAP ESTIMATE 10 mmHg TR Peak Gr. 26 mmHg RVSP 36 mmHg LEFT VENTRICLE Normal LV size and wall thickness. Overall systolic function is normal. LVEF is 70%. RIGHT VENTRICLE RV is normal size and function. Elevated right heart pressures as noted above. ATRIA Left atrium appears moderately dilated. AORTIC VALVE 23 mm Ferrera Vivienne 3 Ultra Resilia bioprosthetic TAVR appears well seated with normal function. No paravalvular leak present. SCOTT is measured at 2.34 msq. Peak / mean gradients of 25 / 13 mmHG. Peak v elocity is measured at 2.50 m/sec. MITRAL VALVE Moderate mitral annular calcification without stenosis. Mild regurgitation. MV not fully evaluated du e to limited focused exam. TRICUSPID VALVE The tricuspid valve is normal in structure with trace regurgitation. GREAT VESSELS The IVC is normal in size and collapses >50% with inspiration. PERICARDIUM Normal pericardium. No effusion. Other Information Study Quality: Adequate
== END 2025-01-07 16:32 | disposition home or self-care (01) | DRG 266 ==
LOC: PAS IN 06:08 → PCU 3S 11:51
PROVIDERS: ADMIT Internal Medicine Cardiovascular Disease; ATTEND Internal Medicine Cardiovascular Disease
PROC: B41D1ZZ Fluoroscopy of Aorta and Bilateral Lower Extremity Arteries using Low Osmolar Contrast (ICD-10-PCS; 2025-01-06)
PROC: 02RF38Z Replacement of Aortic Valve with Zooplastic Tissue, Percutaneous Approach (ICD-10-PCS; principal; 2025-01-06 08:51)
PROC: 30233N1 Transfusion of Nonautologous Red Blood Cells into Peripheral Vein, Percutaneous Approach (ICD-10-PCS; 2025-01-07)
DX: I35.0 Nonrheumatic aortic (valve) stenosis (principal); Z00.6 Encounter for examination for normal comparison and control in clinical research program; I50.33 Acute on chronic diastolic (congestive) heart failure; I11.0 Hypertensive heart disease with heart failure; E78.5 Hyperlipidemia, unspecified; K74.60 Unspecified cirrhosis of liver; J44.9 Chronic obstructive pulmonary disease, unspecified; I25.10 Atherosclerotic heart disease of native coronary artery without angina pectoris; D64.9 Anemia, unspecified; D69.6 Thrombocytopenia, unspecified
CPT/HCPCS: 33361; 36415; 36430; 71045; 71046; 76937; 80053; 81001; 82948; 83036; 83735; 83880; 85008; 85025; 85347; 85610; 85730; 86885; 86900; 86901; 86920; 87081; 87088; 93005; 93308; 94640; 94760; A4615; A4618; A6258; A6449; C1756; C1760; C1769; C1894; G0378; J0690; J0780; J1644; J2003; J2274; J2371; J2405; J2704; J2720; J3373; J3375; J3490; J7040; J7050; J7120; P9016; Q9967